=== PATIENT | female | born 1990 ===

== ENCOUNTER 2020-10-25 16:49 | Emergency (ER) | payer OTHER, SELFPAY ==
[2020-10-25 17:28] VITALS: BP 126/79; PULSE 81; RESP 16; TEMP 36.8; O2SAT 99; BMI 26.9
[2020-10-25 20:36] LABS: Basophils Absolute Auto 0.1 X10*3/uL (0.0-0.2); Basophils Percent Auto 0.6 % (0-2); Eosinophils Absolute Auto 0.4 X10*3/uL (0.0-0.4); Eosinophils Percent Auto 3.5 % (0-4); Hematocrit 39.2 % (37-47); Hemoglobin 12.7 g/dl (12.0-16.0); Imm Gran Abs Auto 0.03 X10*3/uL (0.00-0.03); Imm Gran Pct Auto 0.3 % (0.0-0.4); Lymphocytes Absolute Auto 2.5 X10*3/uL (1.2-4.9); MANUAL DIFF FLAG NO; Mean Corpuscular HGB Conc 32.4 g/dl (31.0-35.0); Mean Corpuscular Hemoglobin 30.3 pg (27.0-33.0); Mean Corpuscular Volume 93.6 fL (80-98); Mean Platelet Volume 9.7 fL (9.4-12.3); Monocytes Absolute Auto 0.7 X10*3/uL (0.1-1.2); Monocytes Percent Auto 6.7 % (2-11); Neutrophils Absolute Auto 6.5 X10*3/uL (2.0-8.3); Neutrophils Percent Auto 63.9 % (45-73); Platelet Count 309 X10*3/uL (160-400); Red Blood Count 4.19 X10*6/uL (4.20-5.50); Red Cell Distribution Width 12.9 % (11.0-16.0); White Blood Count 10.1 X10*3/uL (4.8-10.8)
[2020-10-25 21:12] LABS: Alanine Aminotransferase 13 U/L (0-31); Albumin Level 4.7 g/dL (3.5-5.0); Alkaline Phosphatase 54 U/L (39-117); Anion Gap 12 (12-20); Aspartate Amino Transferase 16 U/L (5-31); Bilirubin Direct 0.3 mg/dL (0.0-0.5); Bilirubin Total 0.7 mg/dL (0.0-1.0); Blood Urea Nitrogen 13 mg/dL (9-16); Calcium 9.7 mg/dL (8.4-10.2); Carbon Dioxide 28 mmol/L (22-29); Chloride 102 mmol/L (96-108); Estimated Glomerular Filt Rate > 60; Glucose Random 91 mg/dL (60-115); Lipase 36 U/L (8-78); Potassium 3.8 mmol/l (3.3-5.1); Sodium 138 mmol/L (135-145); Total Protein 7.2 g/dL (6.5-8.0)
[2020-10-26] VITALS: BP 118/70; PULSE 73; RESP 18; TEMP 36.6; O2SAT 99
--- NOTE | 2020-10-26 00:04 | ED.GIBLEED ---
HPI - GI Bleed General Chief complaint: GI Bleed Stated complaint: BLEEDING Time Seen by Provider: 10/25/20 23:37 Source: patient Mode of arrival: ambulatory Limitations: language barrier (Hebrew speaking) History of Present Illness HPI Narrative: Patient comes emergency room complaining of rectal bleeding. Patient states every time she wipes she sees blood in the toilet paper. Patient denies pain in the anal/rectal area, no abdominal pain. Patient denies vaginal bleeding. Patient is not on blood thinners. Patient states it is a small amount of blood, only visible with bowel movements and wiping, patient has not seen blood clots in the toilet. Patient denies fever, no diarrhea, no constipation, no vomiting. Related Data Home Medications Medication Instructions Recorded Confirmed No Known Home Meds 10/25/20 10/25/20 Allergies Allergy/AdvReac Type Severity Reaction Status Date / Time No Known Allergies Allergy Verified 10/25/20 17:33 Review of Systems Review of Systems: Constitutional : No Weight loss, No Fever, No Chills, No Night Sweats, No Fatigue, No Malaise ENT/Mouth : No Hearing loss, No Ear Pain, No Nasal Congestion, No Sinus Pain, No Hoarseness, No sore throat, No Rhinorrhea, No Swallowing Difficulty Eyes: No Eye Pain, No Swelling, No Redness, No Foreign Body, No Discharge, No Vision Changes Cardiovascular : No Chest Pain, No SOB, No Dyspnea on Exertion, No Orthopnea, No Edema, No Palpitations Respiratory : No Cough, No Sputum, No Wheezing, No Smoke Exposure, No Dyspnea Gastrointestinal : No Nausea, No Vomiting, No Diarrhea, No Constipation, No abdominal Pain, complaining of seeing blood in toilet paper with wiping, no rectal pain Genitourinary : no irregular bleeding, No Dysuria, No Urinary Frequency, No Hematuria, No Urinary Incontinence, No Urgency, No Flank Pain, No Urinary Flow Changes, No Hesitancy Musculoskeletal : No joint pain, No Myalgias, No Joint Swelling Skin : No Skin Lesions, No rash Neuro : No Weakness, No Numbness, No Paresthesias, No Loss of Consciousness, No Dizziness, No Headache Psych : No Anxiety/Panic, No Depression, No SI/HI/AH/VH, No Social Issues, Heme/Lymph: No Bruising, No Bleeding,No Lymphadenopathy Endocrine : No Polyuria, No Polydipsia, No Temperature Intolerance [facility] Past Medical History Medical History No known health problems Social History Social History Advance Directives: No Advance Directives Information Provided: No Physical Exam Vital Signs: Vital Signs: Last Vital Signs Temp 98.3 F 10/25/20 17:28 Pulse 81 10/25/20 17:28 Resp 16 10/25/20 17:28 BP 126/79 10/25/20 17:28 Pulse Ox 99 10/25/20 17:28 Body Mass Index 26.9 Appearance: Alert. Oriented X3. No acute distress. Eyes: Pupils equal, round and reactive to light. ENT: Pharynx normal. Neck: Normal inspection. Neck supple. No lymph nodes noted. No crepitus CVS: Normal heart rate and rhythm. Pulses normal. Normal S1 and S2 Respiratory: No respiratory distress. Breath sounds normal. No Wheezing. No rales Abdomen: Soft and nontender. No rigidity. No distention. good BS x4. No external hemorrhoids, on MAKENZIE, possible internal hemorrhoids, no herman blood, brown stool Skin: Skin warm and dry. Normal skin color. Normal skin turgor. Extremities: No lower extremity edema. No lower extremity edema. No Lacerations. No Rash Neuro: Oriented X 3. No motor deficit. No sensory deficit. Moving all extermities. No slurred speech. Course Course Course Narrative: I discussed the physical exam with the patient, patient likely has internal hemorrhoids. Her labs are within normal limits. Patient instructed to follow-up with general surgery as she may need banding of the hemorrhoids. Rectal bleeding has been ongoing for 1 week, patient's hemoglobin and hematocrit are stable hemoglobin 12.7, hematocrit 39.2, significant upper or lower GI bleed is not suspected. MDM - GI Bleed Lab Data Result diagrams: 10/25/20 20:29 10/25/20 20:29 Labs: Lab Results 10/25/20 10/25/20 Range/Units 20: 20:29 WBC 10.1 (4.8-10.8) X10*3/uL RBC 4.19 L (4.20-5.50) X10*6/uL Hgb 12.7 (12.0-16.0) g/dl Hct 39.2 (37-47) % MCV 93.6 (80-98) fL MCH 30.3 (27.0-33.0) pg MCHC 32.4 (31.0-35.0) g/dl RDW 12.9 (11.0-16.0) % Plt Count 309 (160-400) X10*3/uL MPV 9.7 (9.4-12.3) fL Immature Gran % (Auto) 0.3 (0.0-0.4) % Neut % (Auto) 63.9 (45-73) % Lymph % (Auto) 25.0 (20-40) % [place] % (Auto) 6.7 (2-11) % Eos % (Auto) 3.5 (0-4) % Baso % (Auto) 0.6 (0-2) % Lymph # (Auto) 2.5 (1.2-4.9) X10*3/uL [place] # (Auto) 0.7 (0.1-1.2) X10*3/uL Eos # (Auto) 0.4 (0.0-0.4) X10*3/uL Baso # (Auto) 0.1 (0.0-0.2) X10*3/uL Abs Immat Gran (auto) 0.03 (0.00-0.03) X10*3/uL Absolute Neuts (auto) 6.5 (2.0-8.3) X10*3/uL Absolute Nucleated RBC 0.000 (0.0-0.012) X10*3/uL Nucleated RBC % (auto) 0.0 (0.0-0.2) /100WBC Sodium 138 (135-145) mmol/L Potassium 3.8 (3.3-5.1) mmol/l Chloride 102 (96-108) mmol/L Carbon Dioxide 28 (22-29) mmol/L Anion Gap 12 (12-20) BUN 13 (9-16) mg/dL Creatinine 0.73 (0.5-1.4) mg/dL Estim Creat Clear Calc 111.0 Estimated GFR > 60 Random Glucose 91 (60-115) mg/dL Calcium 9.7 (8.4-10.2) mg/dL Total Bilirubin 0.7 (0.0-1.0) mg/dL Direct Bilirubin 0.3 (0.0-0.5) mg/dL AST 16 (5-31) U/L ALT 13 (0-31) U/L Alkaline Phosphatase 54 (39-117) U/L Total Protein 7.2 (6.5-8.0) g/dL Albumin 4.7 (3.5-5.0) g/dL Lipase 36 (8-78) U/L Discharge Plan Discharge Clinical Impression: Internal hemorrhoid, bleeding Patient Disposition: Home, Self-Care Instructions: Rectal Bleeding (ED), Hemorrhoids (ED) Additional Instructions: Please follow-up with your primary care physician tomorrow. If you have any worsening or new symptoms, please return to the emergency room or call 911 Prescriptions: No Action No Known Home Meds RF: 0 Referrals: Omi Castellano MD [Physician] - 2 days
[2020-10-26 00:24] LABS: OBS Int Ctl Valid YES; OBS1 POS (NEG)
== END 2020-10-26 00:21 | disposition home or self-care (01) ==
PROVIDERS: Emergency Provider Emergency Medicine
DX: K64.8 Other hemorrhoids (principal)
CPT/HCPCS: 36415; 80048; 80076; 82272; 83690; 85025; 99284

== ENCOUNTER → 2021-02-06 15:18 | Outpatient (BNVA) | payer OTHER, SELFPAY | PROVIDERS: Visit Provider Surgery | DX: K62.5 Hemorrhage of anus and rectum (principal) | CPT/HCPCS: 46600; 99202 ==

== ENCOUNTER 2021-02-24 08:07 | Day surgery (SDC) | payer OTHER, SELFPAY ==
[2021-02-21 10:15] VITALS: BMI 26.9
--- NOTE | 2021-02-23 08:53 | P.CONAN_ITS ---
Documented by User: Gillian Atkinson 02/23/21 08:54 HPI - Anesthesia Eval Consult details Narrative: 30yo F for Colonoscopy [facility] Active Problems Active Problems: All Active Problems (Updated 02/06/21 @ 16:56 by Omi Castellano MD) Rectal bleed (Acute) Past Medical History Medical History No known health problems Rectal bleed Surgical History Surgical History History of hysterectomy Social History Social History Alcohol intake: current Smoking Status: Current every day smoker Advance Directives: No Advance Directives Information Provided: No Advance Directives on File: No Meds Allergies Allergy/AdvReac Type Severity Reaction Status Date / Time No Known Allergies Allergy Verified 02/21/21 10:14 Exam Exam Date and Time: February 23, 2021 0853 Height,Weight and Vital Signs: Height 5 ft 5 in Weight 73.482 kg Assessment and Plan Assessment Anesthesia Assessment: Chart Reviewed Documented by User: Franklin Rhodes 02/24/21 08:26 [facility] Past Medical History Medical History No known health problems Rectal bleed Surgical History Surgical History History of hysterectomy Social History Social History Alcohol intake: current Smoking Status: Current every day smoker Advance Directives: No Advance Directives Information Provided: No Advance Directives on File: No Meds Allergies Allergy/AdvReac Type Severity Reaction Status Date / Time No Known Allergies Allergy Verified 02/21/21 10:14 Exam Airway Mallampati Class: II TM Dist: >3cm Neck ROM: Full Loose/Missing/Broken Teeth: Yes Heart: [id number] Lungs: cta b/l Assessment and Plan Assessment Anesthesia Assessment: Anesthesia Plan Discussed, PAT Visit and Chart Reviewed Final Anesthetic Review NPO: Yes ASA Class: II Final Preanesthetic Review: No Changes in Pt Med Stat, Meds/Allgs Chart Reviewed , Consent Obtained/Reviewed and Anes Risks/Benef Reviewed Patient Risk: Low Procedure Risk: Low Assessment/Block/Sedation in SS: Assess/Block/Sedation-SS Anesthetic Plan Anesthetic Plan: MAC: and Agree w/ Assess. and Plan Disposition: Standard PACU
--- NOTE | 2021-02-24 08:20 | PC.NURSE ---
PATIENT SPEAKS GRENADIAN LUXEMBOURGISH OFFERED INTEPRETER BUT ALSO SPEAKS CAMEROONIAN AND REQUESTED A MILLINERY COPYIST . BOTH LANGUAGES WERE FOFFERRED. PATIENT UNDERSTANDS. ALSO SPEAKS CZECH.
[2021-02-24 08:28] VITALS: BP 115/64; PULSE 66; RESP 16; TEMP 36.3; O2SAT 99
[2021-02-24] MEDS: Lactated Ringers 1,000 ML 100 ML IVCONT (08:39)
--- NOTE | 2021-02-24 09:15 | MHC.SHP ---
Pre-Procedural Eval Section B Chief Complaint: Rectal Bleeding Allergies: Allergies Allergy/AdvReac Type Severity Reaction Status Date / Time No Known Allergies Allergy Verified 02/21/21 10:14 Plan I have reviewed the history and physical and performed a pertinent physical examination on my patient. No changes have occurred unless specified.
--- NOTE | 2021-02-24 09:55 | W.PM.OPN ---
Operative Note Operative Note Date of Service: 02/24/21 Narrative: Preop diagnosis: Rectal bleeding Postop diagnosis: Proctitis, up to about 12 cm level Procedure: Colonoscopy, with multiple biopsies of the rectum Surgeon: Omi Castellano MD The patient is a 30-year-old female who was referred to me in the office because of periodic passage of bright blood per rectum with some mucoid drainage. I therefore told her that it would be best to proceed with colonoscopy as I did not feel that her hemorrhoids were the source of her bleeding. She understood the technique of the procedure as well as the risks, benefits, and alternatives. She was brought to the operative room and placed in left lateral decubitus position under monitored anesthesia care. A full digital rectal was done and there were no palpable anal lesions. There was note of a small external hemorrhoid. A surgical time-out had been done earlier. The Olympus colonoscope was gently introduced through the anal orifice advanced with insufflation all way to the cecum. As we entered the rectum, we had noted diffuse erythema starting from the anal rectal area continues lead to about level about 12-13 cm. There was also note of some very superficial ulcerations. The erythema ended and there was an immediate transition to normal colonic mucosa. I was able to advance the scope all the way to cecum without difficulty. The cecum was identified by visualization of the ileocecal valve as well as the appendiceal orifice. The cecal mucosa was unremarkable. The scope was then slowly withdrawn with careful examination of the entire colonic mucosa being done with scope withdrawal. The patient had adequate bowel prep so it was unlikely that any lesion had been missed. Again there was note of this diffuse, circumferential erythematous changes with an immediate transition starting from the level of the 12/[address] distally. The anal canal was otherwise unremarkable. There were no other lesions seen. The scope was then withdrawn gently with desufflation. The patient tolerated procedure well. There were no complication noted. I will refer the patient to gastroenterology for treatment of her proctitis. We will also await for the path report. I will discuss the above with the patient in the office.
[2021-02-24 09:56] VITALS: BP 95/58; PULSE 67; RESP 18; TEMP 36.5; O2SAT 100
--- NOTE | 2021-02-24 10:01 | PM.OP ---
Brief Operative Note Date of Service: 02/24/21 Pre-op diagnosis: Rectal bleeding Post-op diagnosis: other (Proctitis from 12-13 cm distally) Surgeon: Omi Castellano MD Anesthesia: GLMA Estimated blood loss (mL): 1 Pathology: other (Rectal biopsy) Condition: stable Disposition: PACU
[2021-02-24 10:11] VITALS: BP 99/53; PULSE 62; RESP 18; O2SAT 100
== END 2021-02-24 10:59 | disposition home or self-care (01) ==
PROVIDERS: Visit Provider Surgery
PROC: 0DJD8ZZ Inspection of Lower Intestinal Tract, Via Natural or Artificial Opening Endoscopic (ICD-10-PCS; CPT 45378; principal; 2021-02-24 09:10)
DX: K51.20 Ulcerative (chronic) proctitis without complications (principal); K64.4 Residual hemorrhoidal skin tags; F17.210 Nicotine dependence, cigarettes, uncomplicated
CPT/HCPCS: 45380; 88305; J1100; J2405